=== PATIENT | female | born 1935 | race Caucasian/White ===

== ENCOUNTER 2017-01-14 16:36 | Outpatient (CLI) | payer MEDICARE | END 2017-01-14 16:37 | disposition home or self-care (01) | DX: E03.9 Hypothyroidism, unspecified (principal) ==

== ENCOUNTER 2017-02-09 16:35 | Outpatient (CLI) | payer MEDICARE ==
--- NOTE | 2017-02-10 08:32 | MRI Report ---
EXAM: MRI LUMBAR SPINE WITHOUT CONTRAST EXAM DATE: 02/09/2017 04:45 PM. CLINICAL HISTORY: Sciatic, right, back pain, lumbar. Increased right buttock and leg pain after fall September 2016. Right leg numbness down to the ankle. Pain is worse at night. History of right breast c ancer. COMPARISON: None. CT scan of the abdomen and pelvis 01/10/2016. TECHNIQUE: Multiplanar, multisequence T1-weighted and fluid-sensitive sequences of the lumbar spine f rom T12 to S1 without contrast. Other: None. FINDINGS: Spinal Cord: The conus terminates at T12-L1. The conus medullaris and cauda equina are unremarkable. The lumbar spinal canal is adequate. Alignment: Mild, 4 mm, spondylotic spondylolisthesis is seen at L4-L5. Minimal, 2 mm, spondylolisthes is is seen at L5-S1. Bone Marrow: Five rpg-uwk-wlkocnv lumbar vertebral bodies are assumed. No gross fractures or bone les ions. No bone marrow edema. Schmorl's node formation is seen in the L3 and L2 superior endplate, unch anged. Disk Levels/Facets: T12-L1: Unremarkable. L1-L2: Unremarkable. Minimal circumferential disk bulge is noted. L2-L3: Unremarkable. Minimal circumferential disk bulge is seen. L3-L4: Mild degenerative facet change is seen. Thickening of the ligamentum flavum is noted. Mild los s of disk space height with T2 hypointense disk signal is seen. Minimal dorsal and mild ventral circu mferential disk bulge is seen. Effacement of the thecal sac is noted. No stenosis. L4-L5: Marked hypertrophic degenerative facet change is seen. Thickening of the ligamentum flavum is noted. Grade 1 spondylolisthesis is present. Minimal loss of disk space height with T2 hypointense di sk signal is seen. Minimal circumferential disk bulge. Effacement of the thecal sac is seen primarily secondary to degenerative facet change and spondylolisthesis. Moderate canal stenosis is seen. L5-S1: Marked hypertrophic degenerative facet change is seen. Fluid is seen in the facet joints with thickening of the ligamentum flavum. Minimal spondylolisthesis. T2 hypointense disk signal is seen. M ild lateral disk bulge is seen. Effacement of the thecal sac is noted. Mild canal narrowing without s tenosis is seen. Musculature: Normal. No edema or fatty atrophy. Other: The partially visualized retroperitoneum is unremarkable. IMPRESSION: 1. L5-S1: Marked degenerative facet and mild degenerative disk change. Minimal spondylolisthesis. Mil d canal narrowing without stenosis. 2. L4-L5: Marked degenerative facet and mild degenerative disk change. Grade 1 spondylolisthesis. Mod erate canal stenosis. 3. L3-L4: Mild degenerative disk and facet change. No stenosis. Comment: The following findings are so common in adults without low back pain that while we report th eir presence, they must be interpreted with caution and in the context of the clinical situation. (Re pawel [place] et al, Spine 2001) Prevalence of findings in patients without low back pain: Disk degeneration (any evidence): 92% Disk desiccation/T2 signal loss: 83% Disk height loss: 56% Disk bulge: 64% Disk protrusion: 32% Annular tear/high intensity zone: 38% [facility] Referring Provider Line: [phone] SITE ID: [id number]
== END 2017-02-09 16:36 | disposition home or self-care (01) ==
LOC: DI 16:35
PROVIDERS: ATTEND Family Medicine
DX: M47.896 Other spondylosis, lumbar region (principal); M43.16 Spondylolisthesis, lumbar region; M51.36 Other intervertebral disc degeneration, lumbar region; M51.37 Other intervertebral disc degeneration, lumbosacral region; M47.897 Other spondylosis, lumbosacral region
CPT/HCPCS: 72148

== ENCOUNTER 2017-08-26 07:45 | Outpatient (CLI) | payer MEDICARE ==
[2017-08-26 13:26] LABS: BASOPHILS % (AUTO) 0.6 %; EOSINOPHILS # (AUTO) 0.2 10^3/uL (0.0-0.7); HCT - HEMATOCRIT 35.8 % (37.0-47.0); HGB - HEMOGLOBIN 12.5 g/dL (12.0-16.0); LYMPHOCYTES % (AUTO) 24.8 %; MEAN CORPUSCULAR HEMOGLOBIN 32.4 pg (27.0-31.0); MEAN CORPUSCULAR HGB CONC 34.9 g/dL (32.0-36.0); MEAN CORPUSCULAR VOLUME 92.7 fL (81.0-99.0); MONOCYTES # (AUTO) 0.5 10^3/uL (0.0-1.0); MONOCYTES % (AUTO) 13.4 %; NEUTROPHILS # (AUTO) 2.2 10^3/uL (1.5-6.6); NEUTROPHILS % (AUTO) 57.2 %; NUCLEATED RED BLOOD CELLS AUTO 0.1 /100WBC; RED BLOOD COUNT 3.86 10^6/uL (4.20-5.40); RED CELL DISTRIBUTION WIDTH 13.4 % (12.0-15.0); UNCORRECTED WHITE BLOOD COUNT 3.9 x10^3/uL; WHITE BLOOD COUNT 3.9 x10^3/uL (4.8-10.8)
[2017-08-26 13:55] LABS: ALBUMIN/GLOBULIN RATIO 1.8 (1.0-2.2); BILIRUBIN,TOTAL 0.7 mg/dL (0.2-1.0); BUN - BLOOD UREA NITROGEN 19 mg/dL (6-20); CALCIUM 9.2 mg/dL (8.5-10.3); CARBON DIOXIDE - CO2 29 mmol/L (21-32); CHLORIDE 98 mmol/L (101-111); CHOL/HDL RATIO 2.4 (<4.4); CHOLESTEROL 232 mg/dL; CREATININE 0.8 mg/dL (0.4-1.0); GFR - MDRD 69 (>89); GLUCOSE 87 mg/dL (70-100); HDL CHOLESTEROL 98 mg/dL; LDL/HDL RATIO 1.3 (<4.4); POTASSIUM 4.1 mmol/L (3.5-5.0); SODIUM 133 mmol/L (135-145); TOTAL PROTEIN 6.9 g/dL (6.7-8.2); TRIGLYCERIDES 44 mg/dL; VLDL CHOLESTEROL 9 mg/dL
== END 2017-08-26 07:46 | disposition home or self-care (01) ==
LOC: LAB.WCP 07:45
PROVIDERS: ATTEND Family Medicine
DX: R63.4 Abnormal weight loss (principal); I10 Essential (primary) hypertension; E78.5 Hyperlipidemia, unspecified; E03.9 Hypothyroidism, unspecified
CPT/HCPCS: 36415; 80053; 80061; 84443; 85025

== ENCOUNTER 2018-09-02 07:41 | Outpatient (CLI) | payer MEDICARE ==
[2018-09-02 12:45] LABS: BASOPHILS % (AUTO) 0.6 %; EOSINOPHILS # (AUTO) 0.1 10^3/uL (0.0-0.7); EOSINOPHILS % (AUTO) 2.3 %; HGB - HEMOGLOBIN 12.5 g/dL (12.0-16.0); LYMPHOCYTES # (AUTO) 1.1 10^3/uL (1.5-3.5); MEAN CORPUSCULAR HEMOGLOBIN 32.3 pg (27.0-31.0); MEAN CORPUSCULAR VOLUME 92.5 fL (81.0-99.0); MEAN PLATELET VOLUME 6.9 fL (7.9-10.8); MONOCYTES # (AUTO) 0.5 10^3/uL (0.0-1.0); MONOCYTES % (AUTO) 13.1 %; NEUTROPHILS # (AUTO) 2.3 10^3/uL (1.5-6.6); PLT - PLATELET COUNT 237 10^3/uL (130-450); RED BLOOD COUNT 3.87 10^6/uL (4.20-5.40); RED CELL DISTRIBUTION WIDTH 13.3 % (12.0-15.0)
[2018-09-02 13:12] LABS: ALBUMIN 4.3 g/dL (3.2-5.5); ALBUMIN/GLOBULIN RATIO 1.6 (1.0-2.2); ALKALINE PHOSPHATASE 41 IU/L (42-121); ALT ALANINE AMINOTRANSFERASE 16 IU/L (10-60); AST ASPARTATE AMINOTRANSFERASE 23 IU/L (10-42); BILIRUBIN,TOTAL 0.6 mg/dL (0.2-1.0); BUN - BLOOD UREA NITROGEN 14 mg/dL (6-20); CARBON DIOXIDE - CO2 30 mmol/L (21-32); CHLORIDE 96 mmol/L (101-111); CHOL/HDL RATIO 2.7 (<4.4); CHOLESTEROL 233 mg/dL; CREATININE 0.7 mg/dL (0.4-1.0); GFR - MDRD 80 (>89); GLUCOSE 86 mg/dL (70-100); HDL CHOLESTEROL 86 mg/dL; SODIUM 135 mmol/L (135-145)
[2018-09-02 13:42] LABS: LDL CHOLESTEROL,DIRECT 127 mg/dL; LDLD/HDL RATIO 1.5 (<4.4)
== END 2018-09-02 23:59 | disposition home or self-care (01) ==
LOC: LAB.WCP 07:41
PROVIDERS: ATTEND Family Medicine
DX: I10 Essential (primary) hypertension (principal); E78.5 Hyperlipidemia, unspecified; E03.9 Hypothyroidism, unspecified
CPT/HCPCS: 36415; 80053; 80061; 83721; 84443; 85025

== ENCOUNTER 2020-09-06 13:42 | Outpatient (CLI) | payer MEDICARE ==
[2020-09-06 18:10] LABS: BASOPHILS % (AUTO) 0.4 %; EOSINOPHILS # (AUTO) 0.1 10^3/uL (0.0-0.7); EOSINOPHILS % (AUTO) 1.3 %; HGB - HEMOGLOBIN 11.8 g/dL (12.0-16.0); LYMPHOCYTES # (AUTO) 1.1 10^3/uL (1.5-3.5); LYMPHOCYTES % (AUTO) 19.7 %; MEAN CORPUSCULAR HEMOGLOBIN 31.4 pg (27.0-31.0); MEAN CORPUSCULAR HGB CONC 32.8 g/dL (32.0-36.0); MEAN CORPUSCULAR VOLUME 95.7 fL (81.0-99.0); MONOCYTES # (AUTO) 0.5 10^3/uL (0.0-1.0); NEUTROPHILS # (AUTO) 3.6 10^3/uL (1.5-6.6); NEUTROPHILS % (AUTO) 68.4 %; PLT - PLATELET COUNT 204 10^3/uL (130-450); RED BLOOD COUNT 3.76 10^6/uL (4.20-5.40); WHITE BLOOD COUNT 5.3 x10^3/uL (4.8-10.8)
[2020-09-06 18:43] LABS: ALBUMIN 4.3 g/dL (3.2-5.5); ALBUMIN/GLOBULIN RATIO 1.8 (1.0-2.2); ALKALINE PHOSPHATASE 42 IU/L (42-121); ALT ALANINE AMINOTRANSFERASE 18 IU/L (10-60); AST ASPARTATE AMINOTRANSFERASE 23 IU/L (10-42); BILIRUBIN,TOTAL 0.4 mg/dL (0.2-1.0); BUN - BLOOD UREA NITROGEN 20 mg/dL (6-20); CALCIUM 9.2 mg/dL (8.5-10.3); CARBON DIOXIDE - CO2 28 mmol/L (21-32); CHLORIDE 95 mmol/L (101-111); CHOL/HDL RATIO 2.2 (<4.4); CHOLESTEROL 207 mg/dL; CREATININE 0.7 mg/dL (0.4-1.0); GLUCOSE 97 mg/dL (70-100); HDL CHOLESTEROL 93 mg/dL; LDL CHOLESTEROL,CALCULATED 105 mg/dL; LDL/HDL RATIO 1.1 (<4.4); SODIUM 131 mmol/L (135-145); TOTAL PROTEIN 6.7 g/dL (6.7-8.2); VLDL CHOLESTEROL 9 mg/dL
== END 2020-09-06 13:43 | disposition home or self-care (01) ==
LOC: LAB.WCP 13:42
PROVIDERS: ATTEND Family Medicine
DX: I10 Essential (primary) hypertension (principal); E03.9 Hypothyroidism, unspecified; E78.5 Hyperlipidemia, unspecified
CPT/HCPCS: 36415; 80053; 80061; 83721; 84443; 85025

== ENCOUNTER 2020-09-30 09:44 | Outpatient (CLI) | payer MEDICARE ==
--- NOTE | 2020-09-30 10:48 | DEXA Report ---
PROCEDURE: Dexa Spine and/or Hip INDICATIONS: BONE DISORDER TECHNIQUE: Dual energy x-ray absorptiometry (DXA) was performed on a [employer] System. Regions measur ed are the AP Spine, femoral neck, and if needed forearm. COMPARISON: 02/18/2015. FINDINGS: Lumbar Spine: Bone Mineral Density 1.173 g/cm/cm,T score -0.1, normal bone mineral density Left Femoral Neck: Bone Mineral Density 0.852 g/cm/cm, T score -1.2, osteopenia (T score greater or equal to -1.0: NORMAL) (T score from -1.1 to -2.4: OSTEOPENIA) (T score less than or equal to -2.5 to: OSTEOPOROSIS) Impression: OSTEOPENIA. Patient is at increased risk for fracture. Patients with diagnosis of osteoporosis or osteopenia should have regular bone mineral density assess ment. For those eligible for Medicare, routine testing is allowed once every 2 years. Testing frequ ency can be increased for patients who have rapidly progressing disease or for those who are receivin g medical therapy to restore bone mass. Reviewed by: Sae Lora MD on 09/30/2020 9:47 AM [facility] Approved by: Sae Lora MD on 09/30/2020 9:47 AM [facility] Station ID: [id number]
== END 2020-09-30 09:45 | disposition home or self-care (01) ==
LOC: DI 09:44
PROVIDERS: ATTEND Family Medicine
DX: M85.89 Other specified disorders of bone density and structure, multiple sites (principal)

== ENCOUNTER 2020-11-30 12:07 | Outpatient (CLI) | payer MEDICARE ==
--- NOTE | 2020-11-30 16:30 | XRAY Report ---
PROCEDURE: Hand 3 View LT INDICATIONS: LEFT HAND PAIN TECHNIQUE: 3 views of the hand(s) acquired. COMPARISON: None. FINDINGS: Bones: No fractures or dislocations. No suspicious bony lesions. There is hmqkovsv-ym-aljbgu osteo arthritic changes involving the first carpometacarpal joint, third metacarpophalangeal joint and mult iple interphalangeal joints. Soft tissues: No suspicious soft tissue calcifications. IMPRESSION: Xhtbsoac-ku-vlgluh osteoarthritis. Reviewed by: Silvia Lopez MD on 11/30/2020 4:29 PM PDT Approved by: Silvia Lopez MD on 11/30/2020 4:29 PM PDT Station ID: [id number]
== END 2020-11-30 23:59 | disposition home or self-care (01) ==
LOC: DI.WCP 12:07
PROVIDERS: ATTEND Nurse Practitioner
DX: M19.042 Primary osteoarthritis, left hand (principal)

== ENCOUNTER 2021-05-08 07:49 | Outpatient (CLI) | payer MEDICARE ==
[2021-05-08 12:05] LABS: BASOPHILS % (AUTO) 0.4 %; EOSINOPHILS # (AUTO) 0.1 10^3/uL (0.0-0.7); EOSINOPHILS % (AUTO) 3.1 %; LYMPHOCYTES # (AUTO) 1.3 10^3/uL (1.5-3.5); LYMPHOCYTES % (AUTO) 29.5 %; MEAN CORPUSCULAR HEMOGLOBIN 31.3 pg (27.0-31.0); MEAN CORPUSCULAR HGB CONC 32.5 g/dL (32.0-36.0); MEAN CORPUSCULAR VOLUME 96.2 fL (81.0-99.0); MEAN PLATELET VOLUME 9.1 fL (7.9-10.8); MONOCYTES # (AUTO) 0.6 10^3/uL (0.0-1.0); MONOCYTES % (AUTO) 12.7 %; NEUTROPHILS # (AUTO) 2.4 10^3/uL (1.5-6.6); NEUTROPHILS % (AUTO) 54.1 %; PLT - PLATELET COUNT 240 10^3/uL (130-450); RED BLOOD COUNT 4.16 10^6/uL (4.20-5.40); RED CELL DISTRIBUTION WIDTH 13.2 % (12.0-15.0); WHITE BLOOD COUNT 4.5 x10^3/uL (4.8-10.8)
[2021-05-08 12:35] LABS: ALBUMIN 4.7 g/dL (3.2-5.5); ALBUMIN/GLOBULIN RATIO 1.7 (1.0-2.2); ALKALINE PHOSPHATASE 42 IU/L (42-121); ALT ALANINE AMINOTRANSFERASE 20 IU/L (10-60); AST ASPARTATE AMINOTRANSFERASE 30 IU/L (10-42); BILIRUBIN,TOTAL 0.7 mg/dL (0.2-1.0); BUN - BLOOD UREA NITROGEN 17 mg/dL (6-20); CALCIUM 9.6 mg/dL (8.5-10.3); CARBON DIOXIDE - CO2 32 mmol/L (21-32); CHLORIDE 98 mmol/L (101-111); CHOL/HDL RATIO 2.1 (<4.4); CHOLESTEROL 238 mg/dL; CREATININE 0.7 mg/dL (0.4-1.0); GFR - MDRD 80 (>89); GLUCOSE 94 mg/dL (70-100); HDL CHOLESTEROL 112 mg/dL; LDL CHOLESTEROL,CALCULATED 117 mg/dL; POTASSIUM 4.1 mmol/L (3.5-5.0); SODIUM 138 mmol/L (135-145); THYROID STIMULATING HORMONE 1.64 uIU/mL (0.34-5.60); TOTAL PROTEIN 7.4 g/dL (6.7-8.2); TRIGLYCERIDES 46 mg/dL; VLDL CHOLESTEROL 9 mg/dL
== END 2021-05-08 07:50 | disposition home or self-care (01) ==
LOC: LAB.N 07:49
PROVIDERS: ATTEND Family Medicine
DX: I10 Essential (primary) hypertension (principal); E78.5 Hyperlipidemia, unspecified; E03.9 Hypothyroidism, unspecified
CPT/HCPCS: 36415; 80053; 80061; 83721; 84443; 85025

== ENCOUNTER 2021-08-07 14:39 | Outpatient (CLI) | payer MEDICARE ==
--- NOTE | 2021-08-07 16:25 | Ultrasound Report ---
PROCEDURE: Carotid Doppler Complete INDICATIONS: LEFT RETINAL HEMORRHAGE TECHNIQUE: Color and pulse Doppler interrogation was performed of both carotid systems, with image documentation and velocity measurements. COMPARISON: None. FINDINGS: None Right side: Brachial blood pressure: 220/90 mm Hg. Common carotid artery peak systolic velocity: 70 cm/sec. Internal carotid artery peak systolic velocity: 162 cm/sec. Internal carotid artery end diastolic velocity: 26 cm/sec. External carotid artery peak systolic velocity: 122 cm/sec. ICA/CCA peak systolic ratio: 2.3 . Olivia scale imaging description: Moderate plaque at the bifurcation. Percent internal carotid artery stenosis: 50-69% . Vertebral artery: Flow direction is antegrade. Left side: Brachial blood pressure: 207/184 mm Hg. Common carotid artery peak systolic velocity: 68 cm/sec. Internal carotid artery peak systolic velocity: 75 cm/sec. Internal carotid artery end diastolic velocity: 24 cm/sec. External carotid artery peak systolic velocity: 83 cm/sec. ICA/CCA peak systolic ratio: 1.1 . Olivia scale imaging description: Mild plaque at the bifurcation Percent internal carotid artery stenosis: Less than 50% . Vertebral artery: Flow direction is antegrade. IMPRESSION: Hypertension. 50-69% stenosis of the right internal carotid artery. Less than 50% stenosis of the left internal carotid artery. The estimate of stenosis included in the report of the imaging study was calculated using the NASCET method Reviewed by: Samantha Medina MD on 08/07/2021 4:23 PM PST Approved by: Samantha Medina MD on 08/07/2021 4:23 PM PST Station ID: [id number]
== END 2021-08-07 14:40 | disposition home or self-care (01) ==
LOC: DI 14:39
PROVIDERS: ATTEND Family Medicine
DX: H35.62 Retinal hemorrhage, left eye (principal); I10 Essential (primary) hypertension; I65.21 Occlusion and stenosis of right carotid artery
CPT/HCPCS: 93880

== ENCOUNTER 2021-08-07 17:30 | Emergency (ER) | payer MEDICARE ==
[2021-08-07 17:46] VITALS: BP 193/86
== END 2021-08-07 17:49 | disposition home or self-care (01) ==
LOC: ED 17:30
DX: Z53.21 Procedure and treatment not carried out due to patient leaving prior to being seen by health care provider (principal)

== ENCOUNTER 2021-08-07 18:33 | Emergency (ER) | payer MEDICARE ==
[2021-08-07 20:04] LABS: CALCIUM 9.4 mg/dL (8.5-10.3); CREATININE 0.7 mg/dL (0.4-1.0); POTASSIUM 3.9 mmol/L (3.5-5.0)
[2021-08-07 20:06] VITALS: BP 175/91
--- NOTE | 2021-08-07 20:06 | ED Physician Documentation ---
History of Present Illness - Stated complaint Stated Complaint: HIGH BP - Chief complaint Chief Complaint: Cardiac - History obtained from History obtained from: Patient - Additonal information Additional information: This is a ha 86-year-old woman with high blood pressure who presents for evaluation of elevated blood pressures. She came to the hospital today for diagnostic test and they noticed it was elevated. It was fine yesterday. She is asymptomatic without chest pain, pedal edema, urinary complaints, shortness of breath, headache, or stroke symptoms. She has been compliant with her antihypertensives. 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 HEENT: Cataracts - Present Medications Home Medications: Ambulatory Orders Medication Instructions Recorded Confirmed Aspirin 81 mg PO DAILY 06/04/13 01/02/16 Calcium [Calcio Aissatou] 500 mg PO DAILY 06/04/13 01/02/16 Levothyroxine [Synthroid] 75 mcg PO QDAC 06/04/13 01/02/16 Multivitamin [Multivitamins] 1 each PO DAILY 06/04/13 01/02/16 Simvastatin [Zocor] 40 mg PO QPM 06/04/13 01/02/16 Turmeric [Curcumin] 500 mg PO DAILY 06/04/13 01/02/16 Anastrozole 1 mg PO QAM 06/05/13 01/02/16 Alendronate [Fosamax] 30 - 40 mg PO Q7D 08/31/13 01/02/16 Losartan [Cozaar] 100 mg PO DAILY 05/31/14 01/02/16 - Allergies Allergies/Adverse Reactions: Allergies Allergy/AdvReac Type Severity Reaction Status Date / Time levofloxacin [From Levaquin] AdvReac Mild Vertigo Verified 08/07/21 18:37 PD ED PE NORMAL - Vitals Vital signs reviewed: Yes - General General: Alert and oriented X 3, No acute distress - Neck Neck: Supple, no meningeal sign, No bony TTP - Cardiac Cardiac: RRR, No murmur - Respiratory Respiratory: No respiratory distress, Clear bilaterally - Abdomen Abdomen: Non tender - Extremities Extremities: No edema, No calf tenderness / cord - Neuro Neuro: Alert and oriented X 3, Normal speech Results - Vitals Vitals: Vital Signs - 24 hr 08/07/21 08/07/21 18:37 20:03 Temperature 36.4 C L Heart Rate 63 58 L Respiratory 18 13 Rate Blood Pressure 194/88 H 175/91 H O2 Saturation 98 96 Oxygen O2 Source Room air - Labs Labs: Laboratory Tests 08/07/21 19:49 Sodium 132 L Potassium 3.9 Chloride 93 L Carbon Dioxide 27 Anion Gap 12.0 BUN 16 Creatinine 0.7 Estimated GFR (MDRD) 80 L Glucose 92 Calcium 9.4 PD MEDICAL DECISION MAKING - ED course ED course: 86-year-old woman presents with asymptomatic elevated blood pressures. No evidence of endorgan damage. Advised to check her blood pressure once daily and follow-up with her doctor in a week if her blood pressures remain elevated to see if she needs medication management. Departure - Departure Disposition: 01 Home, Self Care Clinical Impression: Hypertension Qualifiers: Hypertension type: primary hypertension Qualified Code(s): I10 - Essential (primary) hypertension Condition: Good Record reviewed to determine appropriate education?: Yes Instructions: ED HTN Established Comments: Continue your current medications, you do have very mildly low sodium. Follow your blood pressures and check them once daily and follow-up with Dr. Wong next week to discuss. Return for new or worsening symptoms.
== END 2021-08-07 20:37 | disposition home or self-care (01) ==
LOC: ED 18:33
DX: I10 Essential (primary) hypertension (principal); Z79.82 Long term (current) use of aspirin
CPT/HCPCS: 36415; 80048; 93005; 99284

== ENCOUNTER 2022-01-23 07:43 | Emergency (ER) | payer MEDICARE ==
--- NOTE | 2022-01-23 07:48 | ED Physician Documentation ---
PD HPI LOWER EXT INJURY - Stated complaint Stated Complaint: RT KNEE PX - History obtained from History obtained from: Patient - History of Present Illness PD HPI LOW EXT INJURY LOCATION: Right, Knee Type of injury: Twist (onset of knee pain after/with golfing aobut month ago. pain in knee with walking (step off portion or trying to walk upstep). The past 2 days, with noticable swelling of the knee and increased pain. Did feel like knee gave out.). No: Fall Where injury occurred: Other (golf course) Timing - onset: How many months ago (1) Timing - details: Gradual onset, Still present, Waxing and waning (until the past couple of days, with more persistent and worse pain. 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 HEENT: Cataracts - Present Medications Home Medications: Ambulatory Orders Medication Instructions Recorded Confirmed Aspirin 81 mg PO DAILY 06/04/13 01/23/22 Calcium [Calcio Clayton] 500 mg PO DAILY 06/04/13 01/23/22 Levothyroxine [Synthroid] 75 mcg PO QDAC 06/04/13 01/23/22 Simvastatin [Zocor] 40 mg PO QPM 06/04/13 01/23/22 Turmeric [Curcumin] 500 mg PO DAILY 06/04/13 01/23/22 Anastrozole 1 mg PO QAM 06/05/13 01/23/22 Alendronate [Fosamax] 30 - 40 mg PO Q7D 08/31/13 01/23/22 Losartan [Cozaar] 100 mg PO DAILY 05/31/14 01/23/22 HYDROcod/ACETAM 5/325 [Pecos 5/325] 1 ea PO Q8H PRN #15 tablet 01/23/22 - Allergies Allergies/Adverse Reactions: Allergies Allergy/AdvReac Type Severity Reaction Status Date / Time levofloxacin [From Levaquin] AdvReac Mild Vertigo Verified 01/23/22 08:24 - Social History Does the pt smoke?: No Smoking Status: Never smoker PD ED PE NORMAL - Vitals Vital signs reviewed: Yes - General General: Alert and oriented X 3, No acute distress, Well developed/nourished - Abdomen Abdomen: Soft, Non tender - Derm Derm: Normal color, Warm and dry - Extremities Extremities: Other (right knee with tenderness and shifting maximal tenderness medial joint line. Mild effusion of knee. No redness nor warmth. no rash. cruciate testing firm and not tender. Collateral also. Pain medially with varus stress, more c/w meniscal loading. Some pain but no crepitance with Apley. ) - Neuro Neuro: Alert and oriented X 3, No motor deficit, No sensory deficit, Normal speech Results - Vitals Vitals: Oxygen O2 Source Room air - Rads (name of study) right knee Radiology: Prelim report reviewed (no osseous abnormality. Mild effusion. ), See rad report PD MEDICAL DECISION MAKING - ED course Complexity details: reviewed old records (no fractures. minimal arthritis. Small effusion.) Departure - Departure Disposition: 01 Home, Self Care Clinical Impression: Knee pain, acute Qualifiers: Laterality: right Qualified Code(s): M25.561 - Pain in right knee Acute meniscal injury of right knee Qualifiers: Encounter type: initial encounter Qualified Code(s): S83.8X1A - Sprain of other specified parts of right knee, initial encounter Condition: Stable Record reviewed to determine appropriate education?: Yes Instructions: ED Meniscal Injury Knee Poss Follow-Up: [facility] [place] [Provider Group] [facility] [Provider Group] Prescriptions: HYDROcod/ACETAM 5/325 [Pecos 5/325] 1 ea PO Q8H PRN #15 tablet PRN Reason: Pain Comments: Your x-ray shows very little arthritis in the knee. Your symptoms would be more suggestive of a meniscal/cartilage injury of the knee. There may be some element of a medial collateral ligament inflammation as well. I would use the hinged knee brace when up and around over the next couple of weeks. Continue with the Aleve 2 tablets twice daily that you have been taking. Be sure to take with a little bit of food to not bother your stomach. To that add Tylenol every 4-6 hours through the day as needed or hydrocodone half to 1 tablet every 6 hours if needed for worse pain. The prior prescription from your primary care of the tramadol, I would not use that since it did seem to make you feel funny and not help as well with the pain. I would suggest following up with orthopedics, call the office today for an appointment in the next week or so. This may improve with the knee brace and anti-inflammatories and time. If not then the orthopedic providers can decide on a next further treatments or imaging. I transmitted your prescription to [facility] in [place]. I am prescribing a short course of narcotic pain medication for you. These are potentially dangerous and addictive medications that should be used carefully. These medications may constipate you. Take an hnet-crs-wsgtwyr stool softener such as docusate twice daily with plenty of water while taking these medications. If you go 24 hours without a bowel movement, take wvjh-dya-zcrjiih MiraLAX, per package instructions. Do not drink or drive while taking these medications. If you received narcotic or sedating medications while in the emergency department do not drive for 24 hours. Store this medication in a safe, secure place and out of reach of children. It is a violation of federal law to give or sell this medication to another person or to use in a manner other than prescribed. The ED will not refill narcotic prescriptions, including prescriptions lost or stolen. You can dispose of unwanted medications at the [facility] office or at several pharmacies such as [facility]. Discharge Date/Time: 01/23/22 09:09
[2022-01-23] MEDS ORDERED: HYDROcod/ACETAM 5/325 MG TABLET PO STA (08:14)
--- NOTE | 2022-01-23 08:39 | XRAY Report ---
PROCEDURE: Knee 3 View RT INDICATIONS: knee pain for wks; pop/worse today TECHNIQUE: 3 views of the right knee(s) were acquired. COMPARISON: None. FINDINGS: BONES/JOINT: No acute, displaced fracture or dislocation. Small suprapatellar joint effusion. Superi or patellar enthesophyte is noted. SOFT TISSUES: No significant abnormality. A calcific density projects medial to the patella, which ma y reflect a phlebolith. IMPRESSION: 1.No acute osseous abnormality. 2.Small joint effusion. If the patient's pain persists, consider magnetic resonance imaging. Reviewed by: Damián Ray MD on 01/23/2022 8:37 AM PDT Approved by: Damián Ray MD on 01/23/2022 8:37 AM PDT Station ID: [id number]
[2022-01-23 09:06] VITALS: BP 165/81
== END 2022-01-23 09:09 | disposition home or self-care (01) ==
LOC: ED 07:43
DX: S83.8X1A Sprain of other specified parts of right knee, initial encounter (principal); X50.1XXA Overexertion from prolonged static or awkward postures, initial encounter; Y93.53 Activity, golf; I10 Essential (primary) hypertension
CPT/HCPCS: 73562; 99282; 99283; A9270

== ENCOUNTER 2022-02-14 14:04 | Outpatient (CLI) | payer MEDICARE ==
--- NOTE | 2022-02-14 16:53 | MRI Report ---
PROCEDURE: Knee RT W/O INDICATIONS: RIGHT KNEE PAIN TECHNIQUE: Noncontrast sagittal PD fast spin echo and T2 fast spin echo with fat saturation, sagittal 3-D gradie nt sequence with fat saturation; coronal T1 spin echo and PD fast spin echo with fat saturation, and axial PD fast spin echo with fat saturation through the knee. COMPARISON: Plain films dated 01/23/2022 FINDINGS: Image quality: Excellent. Menisci: There is linear oblique high signal intensity traversing the inner and middle third of the p osterior horn medial meniscus, demonstrating inferior articular surface extension and superior articu lar surface extension, indicating oblique tearing. Amorphous and linear horizontal high signal intens ity within the posterior horn medial meniscus is present demonstrating inferior articular surface ext ension, indicating complex tearing. Lateral meniscus is intact. Cruciate ligaments: The anterior and posterior cruciate ligaments appear intact. Medial structures: The medial collateral ligament appears intact. Mild T2 signal elevation surrounds the medial collateral ligament. Visualized portions of the pes anserinus tendons appear normal. Smal l amount of medial bursal fluid. Lateral structures: The lateral collateral ligament, long and short heads of the biceps femoris tend on appear intact. The popliteus tendon appears normal. Iliotibial band appears normal. Anterior structures: The quadriceps and patellar tendons appear intact. Mild T2 signal elevation wi thin the patellar tendon at the patellar insertion site. Patellar alignment is normal. No femoral tr ochlear dysplasia or ventral trochlear prominence. No edema in the infrapatellar fat pad. Bones and cartilage: No bone marrow contusions or fractures. There is mild tricompartmental periarti cular osteophyte formation. Moderate articular cartilage loss diffusely overlies the weightbearing as pects of the medial femoral condyle and medial tibial plateau. Mild articular cartilage loss diffusel y overlies the weightbearing aspects of the lateral femoral condyle and lateral tibial plateau. Mild articular cartilage loss overlies the medial and lateral patellar facets. Joint space: There is a small knee joint effusion and a small Austin's cyst. Normal appearing synovi al plicae are incidentally noted. IMPRESSION: 1. Tricompartmental osteoarthritis with associated articular cartilage loss. 2. Complex tearing of the medial meniscus. 3. Patellar tendinitis. 4. MCL strain. 5. Knee joint effusion and Austin's cyst. 6. Medial bursitis. Reviewed by: Traci Boucher MD on 02/14/2022 4:51 PM PDT Approved by: Traci Boucher MD on 02/14/2022 4:51 PM PDT Station ID: [id number]
== END 2022-02-14 14:05 | disposition home or self-care (01) ==
LOC: DI 14:04
PROVIDERS: ATTEND Physician Assistant
DX: M17.11 Unilateral primary osteoarthritis, right knee (principal); S83.231A Complex tear of medial meniscus, current injury, right knee, initial encounter; M76.51 Patellar tendinitis, right knee; M25.461 Effusion, right knee; M71.21 Synovial cyst of popliteal space [Baker], right knee; M70.51 Other bursitis of knee, right knee; M23.8X1 Other internal derangements of right knee; S83.421A Sprain of lateral collateral ligament of right knee, initial encounter

== ENCOUNTER 2022-03-26 08:00 | Outpatient (CLI) | payer MEDICARE ==
--- NOTE | 2022-03-26 14:30 | XRAY Report ---
PROCEDURE: Knee 3 View RT INDICATIONS: Knee pain. TECHNIQUE: 3 views of the right knee(s) were acquired. COMPARISON: Right knee radiographs 01/23/2022. FINDINGS: Bones: No fractures or dislocations. No suspicious bony lesions. Mild medial compartment narrowing present. Mild medial compartment narrowing of the left knee also visualized. Soft tissues: No joint effusion. IMPRESSION: 1. No acute osseous abnormality. 2. Mild degenerative changes of the right knee. Reviewed by: Tito Kaye MD on 03/26/2022 2:28 PM PDT Approved by: Tito Kaye MD on 03/26/2022 2:28 PM PDT Station ID: [id number]
== END 2022-03-26 23:59 | disposition home or self-care (01) ==
LOC: DI.WOS 08:00
PROVIDERS: ATTEND Physician Assistant
DX: M17.11 Unilateral primary osteoarthritis, right knee (principal)

== ENCOUNTER 2022-05-28 10:12 | Outpatient (CLI) | payer MEDICARE ==
--- NOTE | 2022-05-29 10:21 | Mammography Report ---
BILATERAL DIGITAL SCREENING MAMMOGRAM 3D/2D: 05/28/2022 CLINICAL: Routine screening. Personal history of right breast cancer. Comparison is made to exams dated: 08/17/2015 mammogram, 08/27/2014 mammogram, 08/25/2013 mammogram, and 08/22/2012 mammogram - [facility]. Both breasts are almost entirely fatty (category a/<25% glandular tissue). There are benign vascular calcifications in the left breast. There also are benign post operative fi ndings in the right breast. No significant masses, calcifications, or other findings are seen in either breast. There has been no significant interval change. IMPRESSION: BENIGN There is no mammographic evidence of malignancy. A 1 year screening mammogram is recommended. This exam was interpreted at Station ID: [id number]. NOTE: For mammograms, a report in lay terms will be sent to the patient. Approximately 15% of breast malignancies will not be visualized mammographically. In the management of a palpable breast mass, a negative mammogram must not discourage biopsy of a clinically suspicious lesion. Electronically Signed By: Kaiden Shankar acr/penrad:05/28/2022 16:09:56 ACR BI-RADS Category 2: Benign Finding(s) 3342F PARENCHYMAL PATTERN: (F) - The breast(s) demonstrate(s) diffuse fatty replacement. BI-RADS CATEGORY: (2) - 2 RECOMMENDATION: (ANNUAL) - Recommend routine annual screening mammography. [id number] 1 year screening LATERALITY: (B)
== END 2022-05-28 10:13 | disposition home or self-care (01) ==
LOC: DI.N 10:12
PROVIDERS: ATTEND Physician Assistant
DX: Z12.31 Encounter for screening mammogram for malignant neoplasm of breast (principal); Z85.3 Personal history of malignant neoplasm of breast

== ENCOUNTER 2022-08-23 13:16 | Outpatient (CLI) | payer MEDICARE ==
--- NOTE | 2022-08-24 10:02 | Ultrasound Report ---
PROCEDURE: Carotid Doppler Complete INDICATIONS: CAROTID ARTERIAL DISEASE TECHNIQUE: Color and pulse Doppler interrogation was performed of both carotid systems, with image documentation and velocity measurements. COMPARISON: Carotid duplex ultrasound, 08/05/2021. FINDINGS: Right side: Brachial blood pressure: 139/65 mm Hg. Common carotid artery peak systolic velocity: 114.2 cm/sec. Internal carotid artery peak systolic velocity: 100.5 cm/sec. Internal carotid artery end diastolic velocity: 20.5 cm/sec. External carotid artery peak systolic velocity: 141.8 cm/sec. ICA/CCA peak systolic ratio: 0. . Olivia scale imaging description: Echogenic plaques at the bifurcation Percent internal carotid artery stenosis: Less than 50% . Vertebral artery: Flow direction is antegrade. Left side: Brachial blood pressure: 144/63 mm Hg. Common carotid artery peak systolic velocity: 87.6 cm/sec. Internal carotid artery peak systolic velocity: 131.4 cm/sec. Internal carotid artery end diastolic velocity: 40.8 cm/sec. External carotid artery peak systolic velocity: 94.8 cm/sec. ICA/CCA peak systolic ratio: 1.5. Olivia scale imaging description: Echogenic plaques at the bifurcation Percent internal carotid artery stenosis: 50-69%. Vertebral artery: Flow direction is antegrade. IMPRESSION: 1. Less than 50% right internal carotid artery stenosis. 2. 50-69% left internal carotid artery stenosis. 3. Antegrade vertebral artery flows bilaterally. The estimate of stenosis included in the report of the imaging study was calculated using the NASCET method Reviewed by: Silvia Lopez MD on 08/24/2022 10:01 AM PST Approved by: Silvia Lopez MD on 08/24/2022 10:01 AM PST Station ID: [id number]
== END 2022-08-23 13:17 | disposition home or self-care (01) ==
LOC: DI 13:16
PROVIDERS: ATTEND Family Medicine
DX: I65.23 Occlusion and stenosis of bilateral carotid arteries (principal)
CPT/HCPCS: 93880

== ENCOUNTER 2023-09-26 07:48 | Outpatient (CLI) | payer MEDICARE ==
[2023-09-26 12:20] LABS: BASOPHILS % (AUTO) 0.7 %; EOSINOPHILS # (AUTO) 0.1 10^3/uL (0.0-0.7); EOSINOPHILS % (AUTO) 2.2 %; HCT - HEMATOCRIT 39.4 % (37.0-47.0); HGB - HEMOGLOBIN 12.4 g/dL (12.0-16.0); LYMPHOCYTES # (AUTO) 1.2 10^3/uL (1.5-3.5); LYMPHOCYTES % (AUTO) 25.9 %; MEAN CORPUSCULAR HEMOGLOBIN 30.7 pg (27.0-31.0); MEAN CORPUSCULAR HGB CONC 31.5 g/dL (32.0-36.0); MEAN CORPUSCULAR VOLUME 97.5 fL (81.0-99.0); MEAN PLATELET VOLUME 9.2 fL (7.9-10.8); MONOCYTES # (AUTO) 0.5 10^3/uL (0.0-1.0); MONOCYTES % (AUTO) 10.5 %; NEUTROPHILS # (AUTO) 2.7 10^3/uL (1.5-6.6); NEUTROPHILS % (AUTO) 60.3 %; PLT - PLATELET COUNT 227 10^3/uL (130-450); RED BLOOD COUNT 4.04 10^6/uL (4.20-5.40); RED CELL DISTRIBUTION WIDTH 13.5 % (12.0-15.0); WHITE BLOOD COUNT 4.5 x10^3/uL (4.8-10.8)
[2023-09-26 12:45] LABS: ALBUMIN 4.2 g/dL (3.2-5.5); ALBUMIN/GLOBULIN RATIO 1.5 (1.0-2.2); ALKALINE PHOSPHATASE 43 IU/L (42-121); ALT ALANINE AMINOTRANSFERASE 26 IU/L (10-60); AST ASPARTATE AMINOTRANSFERASE 34 IU/L (10-42); BILIRUBIN,TOTAL 0.4 mg/dL (0.2-1.0); BUN - BLOOD UREA NITROGEN 14 mg/dL (6-20); CALCIUM 9.5 mg/dL (8.5-10.3); CARBON DIOXIDE - CO2 34 mmol/L (21-32); CHLORIDE 100 mmol/L (101-111); CHOL/HDL RATIO 2.2 (<4.4); CHOLESTEROL 173 mg/dL; CREATININE 0.7 mg/dL (0.6-1.3); GFR - MDRD 79 (>89); GLUCOSE 87 mg/dL (74-104); HDL CHOLESTEROL 79 mg/dL; LDL CHOLESTEROL,CALCULATED 85 mg/dL; LDL/HDL RATIO 1.1 (<4.4); POTASSIUM 4.5 mmol/L (3.5-4.5); SODIUM 137 mmol/L (135-145); TRIGLYCERIDES 47 mg/dL (48-352); VLDL CHOLESTEROL 9 mg/dL
[2023-09-26 12:48] LABS: THYROID STIMULATING HORMONE 1.29 uIU/mL (0.34-5.60)
== END 2023-09-26 07:49 | disposition home or self-care (01) ==
LOC: LAB.N 07:48
PROVIDERS: ATTEND Physician Assistant
DX: I10 Essential (primary) hypertension (principal); E78.5 Hyperlipidemia, unspecified; E03.9 Hypothyroidism, unspecified
CPT/HCPCS: 36415; 80053; 80061; 83721; 84443; 85025